=== PATIENT | female | born 1955 | race Caucasian/White ===

== ENCOUNTER → 2018-08-25 | Outpatient (CLI) | payer BC ==
--- NOTE | 2018-08-25 16:07 | CONS ---
Assessment/Plan Assessment/Plan Hospital Course (Demo Recall) 63-year-old female with right great trochanteric bursitis and iliotibial band tendinitis. At this time will initiate conservative treatment. Patient will start meloxicam And physical therapy. If she does not improve may further investigate the lumbar spine. Follow-up 3 months. Consultation Date/Type/Reason Admit Date/Time Date of Consultation: Aug 25, 2018 Reason for Consultation Right hip pain. Date/Time of Note DATE: 08/25/18 TIME: 16:04 Hx of Present Illness This is a 63-year-old female who presents with a history of right hip pain. Patient states the pain is in the lateral aspect of the hip. The pain does not radiate to the knee. It is described as sharp at times and as a dull ache. The pain is rated as a 34/10 with activity and 34/10 at rest. Walking tolerance is not limited. No external support. The patient denies admit to a limp. It is difficult to sleep on the affected side at night secondary to pain. Stretching makes it better. There are no symptoms to suggest referred pain from the back with radicular symptoms. Treatment to date has included oral anti-inflammatories, activity modification. The patient states that treatment to date has not provided adequate relief of symptoms, prompting consultation. Duration: year Injury: Guarding Walking tolerance: 4 miles Limp: No Support: No Stairs: Uses normally Physical Therapy: No Injections: No NSAID's: No Prior surgery: No Back pain: No Knee pain: [] Risk of AVN : [] Patient denies fever, chills, shortness of breath, chest pain, nausea/vomiting, constipation, diarrhea, numbness, and tingling. Past Medical History hypothyroidism Past Surgical History Past Surgical Hx: noncontributory Family History Significant Family History: no pertinent family hx Social History Alcohol Use: occasionally Smoking Status: Never smoker Drug Use: none Exam/Review of Systems Exam Vitals Weight: 120 pound Height: 5 foot 8 inches Temperature: 90.4 Heart Rate: 69 Blood Pressure: 121/66 Respiratory Rate: 12 Exam General: Alert, oriented. Vital signs: Noted on the chart. Heart: Regular rate and rhythm. Lungs: No respiratory distress. No accessory muscle use. Musculoskeletal: Well developed thin female in no apparent distress. Gait demonstrates a non- Trendelenburg with no antalgic components and no short leg component. Standing, the pelvis is level and supine there is no true leg length discrepancy. There is tenderness over trochanteric bursa and IT band. Negative Obers Test Range of motion: Flexion: 160 Extension: 0 Internal rotation: 30 External rotation: 60 Abduction: 60 Adduction: 20 Sitting there is no pelvic obliquity. Minimal to no pain at the extremes of motion of the affected hip. Skin was intact throughout both lower extremities. Sensation intact to light touch in a sural, saphenous, deep peroneal, superficial peroneal, medial and lateral plantar nerve distribution. Neurovascular exam showed 5/5 strength in the abductors, quads, EHL/tibialis anterior/gastroc. Normal and symmetrical pulses were palpated in both the dorsalis pedis and posterior tibial arteries. There is no sign of venous stasis. Imaging Imaging Patient deferred x-rays today. Patient brought in radiology report of AP pelvis and two-view right hip. Per the report there was no degenerative changes in the lower back, pelvis, hip. Normal x-ray. PIOTR SPICER MD Aug 25, 2018 16:07
== END | disposition home or self-care (01) ==
LOC: HKI 14:26
PROVIDERS: ATTEND Orthopaedic Surgery Adult Reconstructive Orthopaedic Surgery
DX: M25.551 Pain in right hip (principal); M76.31 Iliotibial band syndrome, right leg
CPT/HCPCS: G0463